=== PATIENT | female | born 1985 | race Caucasian/White ===

== ENCOUNTER 2018-12-24 18:02 | Emergency (ER) | payer OTHER ==
[~2018-12-24] VITALS: Ht 160 cm; Wt 109.0 kg
[~2018-12-24 18:02] MED LIST: HYDR12.517 PO; LAMO300T2 PO; LOSA50TA14 PO; VENL37.52 PO
[2018-12-24] MEDS ORDERED: HYDROcodone/APAP 5/325 TABLET ONE (18:59)
[2018-12-24] MEDS ORDERED: DIAZEPAM 5 MG TABLET ONE (18:59)
[2018-12-24] MEDS ORDERED: DIAZEPAM 5 MG TABLET PO ONE (19:00)
[2018-12-24] MEDS ORDERED: HYDROcodone/APAP 5/325 TABLET PO ONE (19:00)
--- NOTE | 2018-12-24 19:00 | NUR ---
SHOULDER/NECK PAIN 12/30. PT MEDICATED PER AUG.
[2018-12-24] MEDS ORDERED: LOSA1TAB22 PO (19:04)
[2018-12-24] MEDS ORDERED: baclofen (19:04)
[2018-12-24] MEDS ORDERED: PANT20TA3 PO (19:04)
[2018-12-24 20:14] VITALS: BP 142/82
--- NOTE | 2018-12-24 20:14 | NUR ---
PT STATES PAIN DOWN TO 5/10. PT CLEARED FOR DISCHARGE, AMBULATING WELL UPON DEPARTURE.
== END 2018-12-24 20:16 | disposition home or self-care (01) ==
LOC: ED 19:20
DX: S16.1XXA Strain of muscle, fascia and tendon at neck level, initial encounter (principal); S09.90XA Unspecified injury of head, initial encounter; I10 Essential (primary) hypertension; W10.9XXA Fall (on) (from) unspecified stairs and steps, initial encounter; Y93.89 Activity, other specified; Y92.830 Public park as the place of occurrence of the external cause; Y99.8 Other external cause status
CPT/HCPCS: 70450; 72125; 99284

== ENCOUNTER 2019-09-04 05:01 | Outpatient (CLI) | payer OTHER ==
[~2019-09-04] VITALS: Ht 160 cm; Wt 103.0 kg
[~2019-09-04 05:01] MED LIST changes: +BACL20TA PO; +DOCU-180 PO; +LOSA1TAB22 PO; +PANT20TA3 PO; +PANT40TA5 PO; +PRENATAL VITAMIN; +VENL75CA PO; +baclofen
[2019-09-04] MEDS ORDERED: DIPHENHYDRAMINE 25 MG CAPSULE PO ONE (05:30)
[2019-09-04] MEDS ORDERED: DIPHENHYDRAMINE 25 MG CAPSULE ONE (05:36)
[2019-09-04 05:49] VITALS: BP 130/73
== END 2019-09-04 07:27 | disposition home or self-care (01) ==
LOC: LDOP 05:01
PROVIDERS: ATTEND Obstetrics & Gynecology
DX: O26.893 Other specified pregnancy related conditions, third trimester (principal); T78.40XA Allergy, unspecified, initial encounter; X58.XXXA Exposure to other specified factors, initial encounter; Z3A.28 28 weeks gestation of pregnancy
CPT/HCPCS: 59025; 99201; Q0163; G0463

== ENCOUNTER 2019-10-04 22:06 | Observation (INO) | payer OTHER ==
[2019-10-04 22:34] LABS: BASOPHILS # (AUTO) 0.01 x10^3/uL (0-0.1); BASOPHILS % (AUTO) 0 % (0-1); EOSINOPHILS # (AUTO) 0.17 x10^3/uL (0-0.4); EOSINOPHILS % (AUTO) 2 % (1-7); LYMPHOCYTES # (AUTO) 2.51 x10^3/uL (1-3.4); LYMPHOCYTES % (AUTO) 23 % (22-44); MD NO; MEAN CORPUSCULAR HEMOGLOBIN 31.2 pg (27.0-34.8); MEAN CORPUSCULAR HGB CONC 33.9 g/dL (32.4-35.8); MEAN CORPUSCULAR VOLUME 92.2 fL (80-100); MONOCYTES # (AUTO) 0.65 x10^3/uL (0.2-0.8); MONOCYTES % (AUTO) 6 % (2-9); NEUTROPHILS # (AUTO) 7.58 x10^3/uL (1.8-6.8); NEUTROPHILS % (AUTO) 69 % (42-75); PLATELET COUNT 306 x10^3/uL (130-400); RED BLOOD COUNT 3.69 x10^6/uL (3.82-5.3); RED CELL DISTRIBUTION WIDTH 13.9 % (9.6-15.2)
[2019-10-04 22:45] LABS: MICROSCOPIC INDICATED
[2019-10-04 22:47] LABS: ALANINE AMINOTRANSFERASE 11 U/L (12-78); ALBUMIN 2.4 g/dL (3.4-5.0); ANION GAP 9 mmol/L (5-15); BILIRUBIN, DIRECT 0.1 mg/dL (0.1-0.2); CALCIUM 8.9 mg/dL (8.5-10.1); CHLORIDE 109 mmol/L (98-107); CREATININE 0.56 mg/dL (0.55-1.02)
[2019-10-04 22:49] LABS: ALKALINE PHOSPHATASE 90 U/L (45-117); BILIRUBIN,TOTAL 0.3 mg/dL (0.2-1.0); TOTAL PROTEIN 6.3 g/dL (6.4-8.2)
[2019-10-04 22:50] LABS: CREATININE,URINE RANDOM 32.6 mg/dL
[2019-10-04] MEDS ORDERED: BETAMETHASONE 6 MG/ML, 5ML IM ONE ×2 (23:16→23:30)
[2019-10-04] MEDS ORDERED: LABETALOL 100 MG TABLET ONE (23:16)
[2019-10-04 23:20] VITALS: BP 156/93
[2019-10-04 23:39] VITALS: BP 160/83
[2019-10-05] MEDS ORDERED: LABETALOL 100 MG TABLET PO SCH (08:00)
== END 2019-10-05 06:35 | disposition home or self-care (01) ==
LOC: LDOP 22:06 → LDIP 23:12 → INTOOBSV 23:12
PROVIDERS: ADMIT Obstetrics & Gynecology; ATTEND Obstetrics & Gynecology
DX: O16.3 Unspecified maternal hypertension, third trimester (principal); O99.343 Other mental disorders complicating pregnancy, third trimester; O99.613 Diseases of the digestive system complicating pregnancy, third trimester; F31.9 Bipolar disorder, unspecified; K31.84 Gastroparesis; Z3A.33 33 weeks gestation of pregnancy; Z79.899 Other long term (current) drug therapy; Z91.410 Personal history of adult physical and sexual abuse
CPT/HCPCS: 36415; 59025; 80053; 81001; 82248; 82570; 84156; 84550; 85025; 87086; 96372; 99211; G0378; J0702; G0463

== ENCOUNTER 2019-10-31 20:58 | Emergency (ER) | payer OTHER ==
[~2019-10-31] VITALS: Ht 160 cm; Wt 106.3 kg
[~2019-10-31 20:58] MED LIST changes: +FERR324T5 PO
[2019-10-31] MEDS ORDERED: SODIUM CHLORIDE FLUSH 10ML SYR IVF ONE (21:30)
--- NOTE | 2019-10-31 21:36 | NUR ---
PIV ATTEMPTED X2. LABS COLLECTED. PT TAKEN TO US. WILL ATTEMPT PIV WHEN PT RETURNS FROM [place].
[2019-10-31 21:46] LABS: MEAN CORPUSCULAR HEMOGLOBIN 31.3 pg (27.0-34.8); MEAN CORPUSCULAR HGB CONC 33.9 g/dL (32.4-35.8); MEAN CORPUSCULAR VOLUME 92.2 fL (80-100); MEAN PLATELET VOLUME 7.8 fL (7.4-10.4); PLATELET COUNT 325 x10^3/uL (130-400); RED BLOOD COUNT 2.85 x10^6/uL (3.82-5.3); RED CELL DISTRIBUTION WIDTH 14.3 % (9.6-15.2)
[2019-10-31 21:51] LABS: ALANINE AMINOTRANSFERASE 38 U/L (12-78); ALBUMIN 2.3 g/dL (3.4-5.0); ANION GAP 10 mmol/L (5-15); CALCIUM 8.5 mg/dL (8.5-10.1); CHLORIDE 108 mmol/L (98-107)
[2019-10-31 21:56] LABS: ALKALINE PHOSPHATASE 90 U/L (45-117); BILIRUBIN,TOTAL 0.6 mg/dL (0.2-1.0); CREATININE 0.75 mg/dL (0.55-1.02); TOTAL PROTEIN 6.4 g/dL (6.4-8.2)
[2019-10-31 21:57] LABS: MD YES
[2019-10-31 21:58] LABS: <PLATELET ESTIMATE> ADEQUATE; <PLT MORPHOLOGY> NORMAL PLT MORPH; BAND#(MANUAL) 0.31 x10^3/uL; BANDS%(MANUAL) 2 % (0-7); EOS#(MANUAL) 0.31 x10^3/uL (0.0-0.4); EOS% (MANUAL) 2 % (1-7); LYMPH#(MANUAL) 2.31 x10^3/uL (1-3.4); LYMPHS% (MANUAL) 15 % (22-44); METAMYELOCYTES# (MANUAL) 0.15 x10^3/uL (0-0); METAMYELOCYTES% (MANUAL) 1 % (0-1); MONOS#(MANUAL) 0.31 x10^3/uL (0.3-2.7); MONOS% (MANUAL) 2 % (2-9); MYELOCYTES# (MANUAL) 0.15 x10^3/uL (0-0); MYELOCYTES% (MANUAL) 1 % (0-0); POLYCHROMASIA 1+; SEG#(MANUAL) 11.86 x10^3/uL (1.8-6.8); SEGS% (MANUAL) 77 % (42-75)
[2019-10-31 22:37] VITALS: BP 159/88
== END 2019-10-31 23:04 | disposition home or self-care (01) ==
LOC: ED 22:29
DX: O90.89 Other complications of the puerperium, not elsewhere classified (principal); N99.840 Postprocedural hematoma of a genitourinary system organ or structure following a genitourinary system procedure; N92.4 Excessive bleeding in the premenopausal period; R94.31 Abnormal electrocardiogram [ECG] [EKG]; I10 Essential (primary) hypertension; Z90.49 Acquired absence of other specified parts of digestive tract
CPT/HCPCS: 36415; 76856; 80053; 84702; 85025; 86850; 86900; 99284

== ENCOUNTER 2019-11-11 06:41 | Emergency (ER) | payer OTHER ==
[~2019-11-11] VITALS: Ht 160 cm; Wt 92.9 kg
[~2019-11-11 06:41] MED LIST changes: -PANT20TA3 PO; +PANT20TA4 PO; -PANT40TA5 PO; +PANT40TA6 PO
[2019-11-11 06:45] VITALS: BP 135/77
--- NOTE | 2019-11-11 07:17 | NUR ---
PT HAS CO COUGH, FEVER, BODY ACHES, PT NOT IN RESP DISTRESS. DENIES CP OR SOB.
== END 2019-11-11 08:05 | disposition home or self-care (01) ==
LOC: ED 07:33
DX: J02.8 Acute pharyngitis due to other specified organisms (principal); B97.89 Other viral agents as the cause of diseases classified elsewhere; R50.9 Fever, unspecified; Z20.828 Contact with and (suspected) exposure to other viral communicable diseases; M79.10 Myalgia, unspecified site; I10 Essential (primary) hypertension
CPT/HCPCS: 99283; U0001